=== PATIENT | male | born 1985 | race Caucasian/White ===

== ENCOUNTER 2018-07-14 00:03 | Emergency (ER) | payer BC ==
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
[2018-07-14 01:24] VITALS: BP 105/61
== END 2018-07-14 00:50 | disposition home or self-care (01) ==
LOC: MW.ED 00:03
DX: Z13.9 Encounter for screening, unspecified (principal)
CPT/HCPCS: 99283

== ENCOUNTER 2019-05-20 14:35 | Emergency (ER) | payer OTHER, MEDICAID ==
[2019-05-20] MEDS ORDERED: HYDROmorphone 1 MG/ML Syringe IVPUSH ONE (14:39)
[2019-05-20 14:40] VITALS: BP 144/93
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
[2019-05-20] MEDS ORDERED: Iopamidol 755 MG/ML 200 ML Multipack Bottle IVPUSH ONE (15:29)
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
[2019-05-20 16:11] LABS: BLOOD UREA NITROGEN,BUN 15 mg/dL (7.0-18.0); CARBON DIOXIDE,CO2 26.8 mmol/L (21.0-32.0); CHLORIDE,CL 104 mmol/L (98-107); GLUCOSE RANDOM 87 mg/dL (74-106); POTASSIUM,K 4.1 mmol/L (3.5-5.1); SODIUM,NA 138 mmol/L (136-148)
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
--- NOTE | 2019-05-20 16:31 | EDM.PDOC ---
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 [address] [place], [place]. Ph. [phone] Leeroy Cutler DDS PC. [address] [facility] [address] [place], [place]. Ph. Serafin Vazquez DDS. [address] [facility]. Ph. [phone] [facility] [address] [place], [place]. Ph. [phone] [facility]. [address] [place] [address], [place], [place]. Ph. [phone] [facility] [address] [place] [id number]. Ph. [facility]. [address] [place] [address] [address] [place], [place]. Ph. [facility]. [address] [place], [place]. Ph. [phone] It is common to have sore muscles and contusions and after a fall, accident, or motor vehicle accident. These tend to feel worse over the day following the accident. You may also feel worse when you wake up the first morning after your collision. After this point, you will usually begin to improve with each day. The speed of improvement often depends on the severity of the collision, the number of injuries, and the location and nature of these injuries. Home Care Instructions: You may take acetaminophen and ibuprofen as directed below for relief of muscle aches and pains. If you find relief from hot packs or cold packs you may apply these to the affected areas for up to 15 minutes per time, 3-4 times per day. Drink enough fluids to keep your urine clear or pale yellow. Do not drink alcohol. SEEK IMMEDIATE MEDICAL CARE IF: You have numbness, tingling, or weakness in the arms or legs. You develop severe headaches, changes in vision or hearing, or difficulty walking. You have severe neck pain, especially tenderness in the middle of the back of your neck. You have changes in bowel or bladder control. There is increasing pain in any area of the body. You have shortness of breath, lightheadedness, dizziness, or fainting. You have chest pain. You have increasing abdominal discomfort. There is blood in your urine, stool, or vomit. You are otherwise concerned about your health. Difficulty breathing through your nose. This could be due to bruising with swelling of your septum and will require a prompt procedure to prevent further complications. If symptoms are not improving after 2-3 days, please follow up with your primary care physician for reevaluation. Sepsis Event Note - Evaluation Sepsis Screening Result: No Definite Risk - Focused Exam Vital Signs: Vital Signs Temp Pulse Resp BP Pulse Ox 05/20/19 14:38 36.4 C 95 18 144/93 H 100 Date Exam was Performed: 05/20/19 Time Exam was Performed: 16:30
[2019-05-20 16:50] VITALS: PULSE 77
== END 2019-05-20 16:48 | disposition home or self-care (01) ==
LOC: MW.ED 14:35
DX: S06.0X9A Concussion with loss of consciousness of unspecified duration, initial encounter (principal); S46.001A Unspecified injury of muscle(s) and tendon(s) of the rotator cuff of right shoulder, initial encounter; F17.210 Nicotine dependence, cigarettes, uncomplicated; V47.6XXA Car passenger injured in collision with fixed or stationary object in traffic accident, initial encounter
CPT/HCPCS: 36415; 70450; 71045; 71260; 72125; 72128; 72131; 73030; 73080; 74177; 80048; 85025; 85610; 96374; 99285; J1170; Q9967; 99284

== ENCOUNTER 2022-05-09 15:25 | Emergency (ER) | payer OTHER, MEDICAID ==
[2022-05-09] MEDS ORDERED: Morphine 4 MG/ML Syringe IVPUSH ONE (15:30)
[2022-05-09] MEDS ORDERED: Sodium Chloride 0.9% 1,000 ML IV ONE (15:30)
[2022-05-09] MEDS ORDERED: Ondansetron 4 MG/2 ML SDV IVPUSH ONE (15:30)
[2022-05-09 17:07] LABS: CARBON DIOXIDE,CO2 23.9 mmol/L (21.0-32.0); POTASSIUM,K 4.2 mmol/L (3.5-5.1)
[2022-05-09] MEDS ORDERED: Iopamidol 755 MG/ML 500 ML Multipack Bottle IVPUSH STA (17:09)
[2022-05-09 19:28] VITALS: BP 114/47; PULSE 67
== END 2022-05-09 17:55 | disposition home or self-care (01) ==
LOC: MW.ED 15:25
DX: S80.811A Abrasion, right lower leg, initial encounter (principal); M25.561 Pain in right knee; M25.562 Pain in left knee; R10.9 Unspecified abdominal pain; V89.2XXA Person injured in unspecified motor-vehicle accident, traffic, initial encounter; Y92.410 Unspecified street and highway as the place of occurrence of the external cause
CPT/HCPCS: 36415; 71260; 73560; 74177; 80053; 80305; 83690; 83735; 84484; 85025; 93005; 96361; 96374; 96375; 99285; J2270; J2405; J7030; Q9967